=== PATIENT | female | born 1985 | race Hispanic/Latino ===

== ENCOUNTER 2025-03-23 10:22 | Emergency (ER) | payer OTHER, SELFPAY ==
[2025-03-23] MEDS ORDERED: Metoclopramide HCl 10 MG (2 mL) VIAL ONE (11:39)
[2025-03-23] MEDS ORDERED: diphenhydrAMINE 50 MG/ML VIAL ONE (11:39)
[2025-03-23 11:50] LABS: #Basophils 0.04 10x3/uL (0.0-0.2); #Eosinophils 0.03 10x3/uL (0.0-0.5); #Monocytes 0.29 10x3/uL (0.0-1.1); #Neutrophils 8.50 10x3/uL (1.5-8.4); %Basophils 0.4 % (0.0-2.0); %Eosinophils 0.3 % (0.0-6.0); %Lymphocytes 13.7 % (18.0-47.0); %Monocytes 2.8 % (0.0-10.0); %Neutrophils 82.3 % (40.0-75.0); Hematocrit 41.8 % (34.9-44.5); Hemoglobin 13.6 g/dL (12.0-15.5); Mean Corpuscular Hemoglobin 29.6 pg (27.0-33.0); Mean Corpuscular Volume 91.1 fL (81.6-98.3); Platelet Count 307 10x3/uL (150-450); Red Blood Cell (RBC) Count 4.59 10x6/uL (3.90-5.03); White Blood Cell (WBC) Count 10.33 10x3/uL (3.5-10.5)
[2025-03-23 12:07] LABS: ALT (SGPT) 67 U/L (Less than 34); AST (SGOT) 60 U/L (11-34); Albumin 4.4 g/dL (3.1-4.5); Alkaline Phosphatase 95 U/L (40-110); Anion Gap 12 mmol/L (10-20); BUN (Urea Nitrogen) 10 mg/dL (7.0-18.7); Bilirubin, Total 0.3 mg/dL (0.3-1.2); Calc. Creatinine Clearance 0 mL/min (70-130); Calcium 9.2 mg/dL (7.8-10.44); Carbon Dioxide 23 mmol/L (22-29); Chloride 105 mmol/L (98-107); Globulin 3.7 g/dL (2.4-3.5); Glucose 117 mg/dL (70-105); Potassium 4.1 mmol/L (3.5-5.1); Sodium 136 mmol/L (136-145)
[2025-03-23 12:41] LABS: BHCG - Serum Negative (NEGATIVE); Pregs Control Background? CLEAR/WHITE (CLR/WHITE); Pregs Control Bar Appear? YES (CONTROL BAR)
[2025-03-23 12:44] LABS: Glucose, Urine (Dipstick) Normal (Negative); Leukocyte Negative (Negative); Protein, Urine (Dipstick) 15 mg/dl (Neg-Trace); Specific Gravity, Urine 1.010 (1.005-1.030)
[2025-03-23 12:46] LABS: Pregnancy Test - Urine (BHCG) Negative (Negative)
[2025-03-23 12:47] LABS: Pregu Control Background? CLEAR/WHITE (CLR/WHITE); Pregu Control Bar Appear? YES (CONTROL BAR)
[2025-03-23] MEDS ORDERED: Ketorolac Tromethamine 30 MG (1 mL) VIAL ONE (12:57)
[2025-03-23 13:07] LABS: Bacteria/HPF 1+ HPF (None Seen); CAUTI Indications for Culture Alt mental st,lethar; RBC/HPF None Seen HPF (0-3); WBC/HPF 0-3 HPF (0-3)
[2025-03-23 13:08] LABS: Urine Culture Reflex No No
[2025-03-23] MEDS ORDERED: Dexamethasone 10 MG/ML VIAL ONE (13:37)
== END 2025-03-23 15:40 | disposition home or self-care (01) ==
LOC: CSHERS 10:22
DX: G43.909 Migraine, unspecified, not intractable, without status migrainosus (principal); I10 Essential (primary) hypertension; F17.290 Nicotine dependence, other tobacco product, uncomplicated; Z79.899 Other long term (current) drug therapy
CPT/HCPCS: 70450; 80053; 81001; 81025; 84703; 85025; 87428; 96374; 96375; J1100; J1200; J1885; J2765